=== PATIENT | female | born 1965 ===

== ENCOUNTER 2017-03-24 13:12 | Emergency (ER) | payer MEDICAID ==
[2017-03-24 13:12] VITALS: BMI 41.5
[2017-03-24 13:21] VITALS: BP 125/73; PULSE 79; RESP 16; TEMP 98; O2SAT 100
--- NOTE | 2017-03-24 14:17 | ED PDOC ---
Lower Extremity Pain/Injury Time Seen by Provider: 03/24/17 13:30 Chief Complaint (Nursing): Lower Extremity Problem/Injury Chief Complaint (Provider): Right Knee Pain History Per: Patient History/Exam Limitations: no limitations Onset/Duration Of Symptoms: Days (x 3 weeks) Current Symptoms Are (Timing): Still Present Additional Complaint(s): Jennifer is a 51 y/o female who presents to the ED complaining of pain shooting from the right hip to the right knee, for 3 weeks. Patient reports history of osteoarthritis and has been seen by PMD for management of her pain. Taking Gabapentin, Meloxicam, and using a topical cream for pain control. States her pain has been progressively worsening. She now feels a click within her right knee while walking, which is new for her. Her next follow up is in 1 month. Reports having EMG study done, but no X-Rays. PMD: Julieth Lawrence DO Past Medical History Reviewed: Historical Data, Nursing Documentation, Vital Signs Vital Signs: Last Vital Signs Temp 98.0 F 03/24/17 13:17 Pulse 79 03/24/17 13:17 Resp 16 03/24/17 13:17 BP 125/73 03/24/17 13:17 Pulse Ox 100 03/24/17 13:17 - Medical History PMH: Arthritis, Bronchitis, HTN Denies: Chronic Kidney Disease - Surgical History Surgical History: Tonsillectomy - Family History Family History: States: Unknown Family Hx - Home Medications Home Medications: Ambulatory Orders Medication Instructions Recorded Butalb/Acetaminophen/Caffeine 1 cap PO PRN PRN 07/21/16 [Zebutal 50-325-40 mg Capsule] DULoxetine [Cymbalta] 1 tab PO DAILY 07/21/16 Ergocalciferol (Vitamin D2) 1 cap PO WM 07/21/16 [Vitamin D2] Gabapentin [Neurontin] 600 mg PO BID 07/21/16 Losartan/Hydrochlorothiazide 1 tab PO DAILY 07/21/16 [Losartan-Hctz 50-12.5 mg Tab] Naproxen [Naprosyn] 500 mg PO BID 07/21/16 traMADol [Ultram] 50 mg PO Q6H PRN #15 tab 03/24/17 - Allergies Allergies/Adverse Reactions: Allergies Allergy/AdvReac Type Severity Reaction Status Date / Time levofloxacin [From Levaquin] Allergy RASH Verified 07/21/16 16:57 Review of Systems ROS Statement: Except As Marked, All Systems Reviewed And Found Negative Musculoskeletal: Positive for: Leg Pain (Right knee) Physical Exam - Reviewed Nursing Documentation Reviewed: Yes Vital Signs Reviewed: Yes - Physical Exam Appears: Positive for: Well, Non-toxic, No Acute Distress Head Exam: Positive for: ATRAUMATIC, NORMAL INSPECTION, NORMOCEPHALIC Skin: Positive for: Normal Color, Warm, Dry Eye Exam: Positive for: Normal appearance Neck: Positive for: Normal Respiratory: Negative for: Accessory Muscle Use, Respiratory Distress Pulses-Dorsalis Pedis (L): 2+ Pulses-Dorsalis Pedis (R): 2+ Extremity: Positive for: Normal ROM, Capillary Refill (< 2 sec). Negative for: Tenderness, Deformity, Swelling Neurologic/Psych: Positive for: Alert, Oriented - ECG O2 Sat by Pulse Oximetry: 100 (RA) Pulse Ox Interpretation: Normal Medical Decision Making Medical Decision Making: Time: 14:00 Initial Plan: --X-Ray Right Knee --Tramadol 50 mg PO --Pending reevaluation x-ray without acute findings Scribe Attestation: Documented by Petty Kearns, acting as a scribe for Shelby Ludwig PA-C Provider Scribe Attestation: All medical record entries made by the Scribe were at my direction and personally dictated by me. I have reviewed the chart and agree that the record accurately reflects my personal performance of the history, physical exam, medical decision making, and the department course for this patient. I have also personally directed, reviewed, and agree with the discharge instructions and disposition. Disposition - Clinical Impression Clinical Impression: Osteoarthritis - Patient ED Disposition Is Patient to be Admitted: No Counseled Patient/Family Regarding: Diagnosis, Need For Followup, Rx Given - Disposition Referrals: Jasvir Banks III, MD [Staff Provider] - Disposition: Routine/Home Disposition Time: 14:34 Condition: GOOD Prescriptions: traMADol [Ultram] 50 mg PO Q6H PRN #15 tab PRN Reason: Pain Instructions: Osteoarthritis (ED) Forms: [employer] (Pakistani)
--- NOTE | 2017-03-24 15:57 | RAD ---
PROCEDURE: Right Knee Radiographs. HISTORY: knee pain, non-traumatic COMPARISON: None. FINDINGS: BONES: Normal. No fracture. JOINTS: Normal. No osteoarthritis. JOINT EFFUSION: None. OTHER FINDINGS: The patellar view is unremarkable IMPRESSION: Normal radiographs of the right knee.
== END 2017-03-24 15:13 | disposition home or self-care (01) ==
LOC: H.ER 13:12
DX: M19.90 Unspecified osteoarthritis, unspecified site (principal)

== ENCOUNTER 2017-04-30 17:40 | Emergency (ER) | payer MEDICAID ==
[2017-04-30 17:40] VITALS: BMI 41.5
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
[2017-04-30 18:44] VITALS: BP 138/74; PULSE 88; RESP 16; TEMP 98; O2SAT 98
--- NOTE | 2017-05-01 10:19 | RAD ---
PROCEDURE: Radiographs of the Lumbar Spine. HISTORY: trauma COMPARISON: No prior. FINDINGS: BONES: Normal alignment. No listhesis. No fracture. DISC SPACES: Mild anterior endplate osteophytic changes. OTHER FINDINGS: None. IMPRESSION: No demonstrated fracture or dislocation. Mild degenerative changes.
== END 2017-04-30 20:21 | disposition home or self-care (01) ==
LOC: H.ER 17:40
DX: G89.29 Other chronic pain (principal); M54.30 Sciatica, unspecified side; E11.9 Type 2 diabetes mellitus without complications; E78.00 Pure hypercholesterolemia, unspecified; I10 Essential (primary) hypertension
CPT/HCPCS: 72100; 96372; 99282; J1885

== ENCOUNTER 2018-08-18 13:26 | Emergency (ER) | payer MEDICAID, OTHER ==
[2018-08-18 13:27] VITALS: BMI 41.5
[2018-08-18 13:44] VITALS: BP 143/79; PULSE 88; RESP 16; TEMP 98.8; O2SAT 98
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
== END 2018-08-18 15:12 | disposition home or self-care (01) ==
LOC: H.ER 13:26
DX: M54.5 Low back pain (principal); M62.830 Muscle spasm of back; E11.9 Type 2 diabetes mellitus without complications; G89.29 Other chronic pain; I10 Essential (primary) hypertension; Z88.1 Allergy status to other antibiotic agents
CPT/HCPCS: 96372; 99281; J1885